=== PATIENT | male | born 1965 | race African-American/Black ===

== ENCOUNTER 2018-11-06 14:12 | Inpatient (IN) | payer OTHER ==
[~2018-11-06] VITALS: Ht 177.8 cm; Wt 90.7 kg
--- NOTE | ~2018-11-06 | EKG ---
[place], [place] ELECTROCARDIOGRAM REPORT NAME: DONYA MASON UNIT #: [id number] ROOM: 505 DOCTOR: MARK DRAFT REPORT BIRTHDATE: [birth year] [facility] Test Date: 2018-11-06 Test Time: 15:03:30 Pat Name: DONYA MASON Department: Room: 505 Gender: M Belt Sewer: [id number] : 1965 Requested By: ROMAN CHAU Order Number: [id number] Reading MD: Darrel Caraballo MD Measurements Intervals [place] Rate: 66 P: 66 NV: 157 QRS: 32 QRSD: 97 T: 30 QT: 395 QTc: 414 Interpretive Statements Sinus rhythm Probable left atrial enlargement Left ventricular hypertrophy ST elev, probable normal early repol pattern Baseline wander in lead(s) V1,V2,V3,V4,V5,V6 Electronically Signed On 11-06-2018 17:10:39 PST by Darrel Caraballo MD CM:EKGRPT:ELECTROCARDIOGRAM REPORT [id number] ROMAN HOLLINS DRAFT REPORT ROMAN CHAU DO
[2018-11-06 14:14] VITALS: BP 122/78
[2018-11-06 15:14] LABS: BASO # 0.1 10*3/uL (0.0-0.1); BASO % 0.8 % (0.0-1.0); EOS # 0.2 10*3/uL (0.0-0.4); EOS % 2.1 % (1.0-4.0); HEMATOCRIT 43.9 % (42.0-52.0); HEMOGLOBIN 14.2 g/dl (14.0-18.0); LYMPH # 1.7 10*3/uL (1.3-4.4); LYMPH % 22.7 % (27.0-41.0); MEAN CELL VOLUME 88.9 fl (80.0-94.0); MEAN CORPUSCULAR HGB 28.7 pg (27.0-31.0); MEAN CORPUSCULAR HGB CONC 32.3 g/dl (33.0-37.0); MEAN PLATELET VOLUME 9.1 fl (9.6-12.3); MONO # 0.6 10*3/uL (0.1-1.0); MONO % 8.6 % (3.0-9.0); NEUT # 4.8 10*3/uL (2.3-7.9); NEUT % 65.4 % (47.0-73.0); PLATELET COUNT AUTOMATED 517 10*3/uL (130-400); RED BLOOD COUNT 4.94 10*6/uL (4.50-5.90); RED CELL DISTRI WIDTH 14.5 % (0-14.5); WHITE BLOOD COUNT 7.3 10*3/uL (4.8-10.8)
[2018-11-06 15:36] LABS: ALBUMIN 3.9 gm/dl (3.1-4.5); ALKALINE PHOSPHATASE 74 U/L (45-117); BUN 15 mg/dl (7-24); CHLORIDE 105 mmol/L (98-107); CREATININE 0.95 mg/dL (0.70-1.30); POTASSIUM 4.3 mmol/L (3.5-5.1); SGOT/AST 26 IU/L (3-35); SGPT/ALT 43 U/L (12-78); SODIUM 138 mmol/L (136-145); TOTAL PROTEIN 7.9 gm/dL (6.4-8.2)
[2018-11-06 15:37] LABS: ETHYL ALCOHOL < 3.0 mg/dl (<3)
[2018-11-06 15:56] LABS: LIPASE 64 U/L (73-393)
[2018-11-06 16:00] VITALS: BP 106/76
[2018-11-06 17:15] LABS: BILIRUBIN NEGATIVE (NEGATIVE); BLOOD NEGATIVE (NEGATIVE); CLARITY CLEAR (CLEAR); COLOR YELLOW (YELLOW); GLUCOSE NEGATIVE (NEGATIVE); KETONE NEGATIVE (NEGATIVE); LEUKO ESTERASE NEGATIVE (NEGATIVE); NITRITE NEGATIVE (NEGATIVE); SPECIFIC GRAVITY 1.025 (1.005-1.030); UROBILINOGEN 0.2 E.U./dl (0.2-1.0)
[2018-11-06 17:21] LABS: MUCOUS TRACE; RBC 0-2 rbc/hpf (0-2)
[2018-11-06 17:24] LABS: URINE AMPHETAMINES < 1000 (1000ng/ml); URINE BARBITURATES > 200 (200ng/ml); URINE BENZODIAZEPINES < 200 (200ng/ml); URINE CANNABINOIDS (THC) < 50 (50ng/ml); URINE COCAINE < 300 (300ng/ml); URINE METHADONE < 300 (300ng/ml); URINE OPIATES < 300 (300ng/ml)
[2018-11-06 17:25] LABS: URINE PHENCYCLIDINE < 25 (25ng/ml)
[2018-11-06 20:00] VITALS: BP 109/75
[2018-11-07] VITALS: BP 112/72
[2018-11-07 08:00] VITALS: BP 110/70
[2018-11-07 12:00] VITALS: BP 93/62
[2018-11-07 16:00] VITALS: BP 102/73
[2018-11-07 20:00] VITALS: BP 118/64
[2018-11-08] VITALS: BP 111/68
[2018-11-08 08:00] VITALS: BP 108/66
[2018-11-08 12:00] VITALS: BP 110/67
[2018-11-08 16:00] VITALS: BP 111/73
[2018-11-08 20:00] VITALS: BP 122/81
[2018-11-09] VITALS: BP 131/76
[2018-11-09 06:37] LABS: BASO % 0.4 % (0.0-1.0); EOS # 0.1 10*3/uL (0.0-0.4); EOS % 2.6 % (1.0-4.0); HEMATOCRIT 41.7 % (42.0-52.0); HEMOGLOBIN 13.1 g/dl (14.0-18.0); LYMPH # 1.2 10*3/uL (1.3-4.4); LYMPH % 26.6 % (27.0-41.0); MEAN CORPUSCULAR HGB 28.6 pg (27.0-31.0); MEAN CORPUSCULAR HGB CONC 31.4 g/dl (33.0-37.0); MEAN PLATELET VOLUME 9.2 fl (9.6-12.3); MONO # 0.6 10*3/uL (0.1-1.0); MONO % 12.8 % (3.0-9.0); NEUT # 2.7 10*3/uL (2.3-7.9); NEUT % 57.2 % (47.0-73.0); PLATELET COUNT AUTOMATED 410 10*3/uL (130-400); RED BLOOD COUNT 4.58 10*6/uL (4.50-5.90); RED CELL DISTRI WIDTH 14.5 % (0-14.5); WHITE BLOOD COUNT 4.7 10*3/uL (4.8-10.8)
[2018-11-09 08:00] VITALS: BP 128/84
[2018-11-09 12:00] VITALS: BP 132/80
[2018-11-09 16:00] VITALS: BP 113/78
[2018-11-09 20:00] VITALS: BP 110/61
[2018-11-10] VITALS: BP 114/59
== END 2018-11-10 07:06 | DRG 897 ==
LOC: ED 14:12 → EDHOLD 14:56 → 5E 14:56
PROVIDERS: Emergency Medicine; Internal Medicine
DX: F11.23 Opioid dependence with withdrawal (principal); R45.851 Suicidal ideations; F10.232 Alcohol dependence with withdrawal with perceptual disturbance; F11.29 Opioid dependence with unspecified opioid-induced disorder; F31.9 Bipolar disorder, unspecified; D47.3 Essential (hemorrhagic) thrombocythemia; E83.41 Hypermagnesemia; F10.29 Alcohol dependence with unspecified alcohol-induced disorder; Z72.0 Tobacco use